=== PATIENT | female | born 1985 | race Caucasian/White ===

== ENCOUNTER → 2018-01-02 | Outpatient (CLI) | payer BC ==
[~2018-01-02] MED LIST: Natalcare Rx,Pramile PO; Percocet 5/325,Endoc PO
== END | disposition home or self-care (01) ==
LOC: NUC 08:20
DX: R10.13 Epigastric pain (principal)
CPT/HCPCS: 78264; A9541

== ENCOUNTER → 2018-01-09 | Outpatient (CLI) | payer BC | END | disposition home or self-care (01) | LOC: NUC 09:54 | DX: K21.9 Gastro-esophageal reflux disease without esophagitis (principal); K29.60 Other gastritis without bleeding | CPT/HCPCS: 78227; A9537; J2805 ==

== ENCOUNTER → 2018-01-16 | Outpatient (CLI) | payer BC | END | disposition home or self-care (01) | LOC: NUC 09:52 | DX: K21.9 Gastro-esophageal reflux disease without esophagitis (principal); R10.13 Epigastric pain | CPT/HCPCS: 78227; A9537; J2805 ==

== ENCOUNTER 2018-02-06 07:42 | Day surgery (SDC) | payer BC ==
[~2018-02-06] VITALS: Ht 165.1 cm; Wt 53.5 kg
[~2018-02-06 07:42] MED LIST changes: +ACIDOPHILUS1 EAC5 PO; +APRISO0.375 GM PO; +EMERGEN-C 1,01000 MG PO; +IMITREX100 MG PO; +PAMELOR10 MG PO; +PROBIOTIC1 EAC2 PO; +PROTONIX40 MG PO; +SRONYX1 EACH PO
[2018-02-06 08:08] VITALS: BP 137/87
[2018-02-06] MEDS ORDERED: ULTRAM50 MG PO (09:47)
[2018-02-06 11:40] VITALS: BP 131/82
[2018-02-06 12:50] VITALS: BP 135/76
== END 2018-02-06 13:20 | disposition home or self-care (01) ==
LOC: SDC 07:42
PROC: 0FT44ZZ Resection of Gallbladder, Percutaneous Endoscopic Approach (ICD-10-PCS; principal; 2018-02-06)
DX: K80.10 Calculus of gallbladder with chronic cholecystitis without obstruction (principal); K29.60 Other gastritis without bleeding; K21.9 Gastro-esophageal reflux disease without esophagitis
CPT/HCPCS: 88304; J0131; J0330; J0690; J1100; J1170; J2405; J2710; J2765; J3010; J7643; Q0175